=== PATIENT | female | born 1985 | race African-American/Black ===

== ENCOUNTER 2025-05-29 08:21 | Inpatient (IN) | payer MEDICAID ==
[~2025-05-29] VITALS: Ht 160 cm; Wt 93.4 kg
[2025-05-29 08:24] VITALS: O2SAT 96
[2025-05-29 09:41] LABS: BASOPHILS % 0.2 % (0.0-2.0); EOSINOPHILS % 0.3 % (0.0-5.0); HEMATOCRIT. 37.9 % (36.0-48.0); HEMOGLOBIN. 12.8 g/dL (12.0-16.0); LYMPHOCYTES % 19.3 % (20.0-50.0); MEAN PLATELET VOLUME 8.4 fl (7.4-10.4); MONOCYTES % 9.2 % (2.0-8.0); NEUTROPHILS % 71.0 % (40.0-76.0); PLATELET 180 x1000/uL (130-400); RED BLOOD CELL COUNT 4.17 mill/uL (4.2-5.4); RED CELL DISTRIBUTION WIDTH 14.3 % (11.6-14.6)
[2025-05-29 09:57] LABS: HCG SCREEN NEGATIVE
[2025-05-29 09:58] LABS: CREATININE 0.5 mg/dL (0.6-1.0); TROPONIN I HIGH SENSITIVITY < 4 ng/L (3.0-34); UREA NITROGEN BLOOD 11 mg/dL (9-23)
[2025-05-29 10:00] LABS: ASPARTATE AMINOTRANSFERASE 45 IU/L (<34); BILIRUBIN DIRECT 0.5 mg/dL (<=3.0); BILIRUBIN TOTAL 0.7 mg/dL (0.1-1.0); PROTEIN TOTAL 5.8 g/dL (6.0-8.3)
[2025-05-29] MEDS: FUROSEMIDE 40MG/4ML VIAL IVP ONE (10:23)
[2025-05-29] MEDS: CEFTRIAXONE 1GM/50ML 50 ML IV ONE (11:47)
[2025-05-29 12:30] VITALS: BP 135/58; PULSE 110; RESP 17; TEMP 36.6; O2SAT 99
[2025-05-29] MEDS ORDERED: CHOL400D7 PO (12:49)
[2025-05-29] MEDS ORDERED: CARB-214 PO (12:49)
[2025-05-29] MEDS ORDERED: LEVO25TA7 PO (12:49)
[2025-05-29] MEDS ORDERED: LEVE100023 PO (12:49)
[2025-05-29] MEDS ORDERED: OLAN10TA72 PO (12:49)
[2025-05-29] MEDS ORDERED: DOCU-286 PO (12:49)
[2025-05-29] MEDS ORDERED: DIVA-131 PO (12:49)
[2025-05-29 12:58] VITALS: BP 135/58; PULSE 110; RESP 17; TEMP 36.5848
[2025-05-29] MEDS ORDERED: DOCUSATE SODIUM 100MG CAPSULE PO PRN (13:30)
[2025-05-29] MEDS ORDERED: ONDANSETRON HCL 4MG/2ML INJ IV PRN (13:30)
[2025-05-29] MEDS ORDERED: GUAIFENESIN 200MG/10ML SUGAR FREE UDC PO PRN (13:30)
[2025-05-29] MEDS ORDERED: ACETAMINOPHEN 325MG TABLET PO PRN ×2 (13:30)
[2025-05-29] MEDS ORDERED: IPRATROPIUM/ALBUTEROL 0.5-3(2.5)MG/3ML NEB HHN PRN (13:30)
[2025-05-29] MEDS: PIPERACILLIN/TAZO 3.375G/50ML 50 ML IV SCH (14:11)
[2025-05-29 16:00] VITALS: BP 129/85; PULSE 104; RESP 18; TEMP 36.7; O2SAT 97
[2025-05-29] MEDS: DIVALPROEX SODIUM 500MG DR TABLET PO SCH (16:13)
[2025-05-29 20:00] VITALS: BP 119/77; PULSE 95; RESP 20; TEMP 37; O2SAT 98
[2025-05-29] MEDS: OLANZAPINE 10MG TABLET PO SCH (20:53)
[2025-05-29] MEDS: CARBAMAZEPINE 100MG TABLET CHEW PO SCH (20:55)
[2025-05-29] MEDS: LEVETIRACETAM 500MG TABLET PO SCH (20:56)
[2025-05-29] MEDS: ENOXAPARIN 30MG/0.3ML SYR SUBCUT SCH (20:57)
[2025-05-30] VITALS (8 sets, daily range): BP systolic 122–150; BP diastolic 69–94; PULSE 89–107; RESP 18–20; TEMP 36.5–37; O2SAT 95–99
[2025-05-30] MEDS: PANTOPRAZOLE 40MG DR TABLET PO SCH (06:18)
[2025-05-30 08:13] LABS: BASOPHILS % 0.4 % (0.0-2.0); EOSINOPHILS % 0.6 % (0.0-5.0); HEMATOCRIT. 41.2 % (36.0-48.0); HEMOGLOBIN. 13.6 g/dL (12.0-16.0); LYMPHOCYTES % 37.1 % (20.0-50.0); MONOCYTES % 10.9 % (2.0-8.0); NEUTROPHILS % 51.0 % (40.0-76.0); RED BLOOD CELL COUNT 4.52 mill/uL (4.2-5.4); RED CELL DISTRIBUTION WIDTH 14.9 % (11.6-14.6)
[2025-05-30 08:22] LABS: CREATININE 0.6 mg/dL (0.6-1.0)
[2025-05-30 08:23] LABS: UREA NITROGEN BLOOD 12 mg/dL (9-23)
[2025-05-30 08:25] LABS: PHOSPHORUS 3.5 mg/dL (2.5-4.9)
[2025-05-30 08:31] LABS: FOLIC ACID (FOLATE) SERUM > 20.00 ng/mL (>5.38); VITAMIN B12 SERUM 920 pg/mL (211-911)
[2025-05-30 08:33] LABS: TROPONIN I HIGH SENSITIVITY < 4 ng/L (3.0-34)
[2025-05-30 10:39] LABS: PLATELET 161 x1000/uL (130-400)
[2025-05-30 10:40] LABS: T4 FREE 1.11 ng/dL (0.89-1.76)
[2025-05-31] VITALS: BP 145/66; PULSE 90; RESP 18; TEMP 36.8; O2SAT 97
[2025-05-31 04:00] VITALS: BP 113/80; PULSE 78; RESP 20; TEMP 37; O2SAT 97
[2025-05-31 08:00] VITALS: BP 130/92; PULSE 97; RESP 17; TEMP 36.5; O2SAT 96
[2025-05-31] MEDS: FUROSEMIDE 40MG/4ML VIAL IVP NR (11:25)
[2025-05-31 12:00] VITALS: BP 134/87; PULSE 94; RESP 17; TEMP 36.4; O2SAT 100
[2025-05-31 16:00] VITALS: BP 131/2; PULSE 106; RESP 18; TEMP 36.5; O2SAT 97
[2025-05-31 20:00] VITALS: BP 129/89; PULSE 106; RESP 19; TEMP 36.2; O2SAT 93
[2025-06-01] VITALS: BP 137/81; PULSE 102; RESP 19; TEMP 36.4; O2SAT 100
[2025-06-01 04:00] VITALS: BP 120/87; PULSE 97; RESP 20; TEMP 36.1; O2SAT 94
[2025-06-01 08:00] VITALS: BP 142/86; PULSE 99; RESP 18; TEMP 36.9; O2SAT 98
[2025-06-01] MEDS: FUROSEMIDE 40MG/4ML VIAL IVP SCH (08:39)
[2025-06-01 12:00] VITALS: BP 132/87; PULSE 105; RESP 18; TEMP 36.6; O2SAT 98
[2025-06-01 20:00] VITALS: BP 134/75; PULSE 107; RESP 19; TEMP 36.7; O2SAT 96
[2025-06-01] MEDS: LORAZEPAM 0.5MG TABLET PO PRN (21:01)
[2025-06-02 04:00] VITALS: BP 133/54; PULSE 100; RESP 15; TEMP 36.1; O2SAT 98
[2025-06-02] MEDS ORDERED: FUROSEMIDE 40MG TABLET PO SCH (10:45)
[2025-06-02 12:00] VITALS: BP 127/84; PULSE 106; RESP 17; TEMP 36.1; O2SAT 95
[2025-06-02] MEDS: FUROSEMIDE 40MG TABLET PO SCH (12:39)
[2025-06-02 16:00] VITALS: BP 130/87; PULSE 107; RESP 16; TEMP 36.4; O2SAT 97
[2025-06-02 20:00] VITALS: BP 139/92; PULSE 105; RESP 19; TEMP 36.1; O2SAT 94
[2025-06-02] MEDS: AMOXICILLIN/POTASSIUM CLAVULANATE 875/125MG TAB PO SCH (21:28)
[2025-06-03] VITALS: BP 136/81; PULSE 101; RESP 18; TEMP 36.3; O2SAT 95
[2025-06-03 08:00] VITALS: BP 114/80; PULSE 95; RESP 17; TEMP 36.2; O2SAT 96
[2025-06-03] MEDS: OLANZAPINE 10MG TABLET ONE (09:01)
[2025-06-03 12:00] VITALS: BP 123/86; PULSE 104; RESP 16; TEMP 36.4; O2SAT 99
[2025-06-03 16:00] VITALS: BP 125/82; PULSE 105; RESP 17; TEMP 36.5; O2SAT 99
[2025-06-03 20:00] VITALS: BP 121/62; PULSE 107; RESP 16; TEMP 36.2; O2SAT 98
[2025-06-04] VITALS: BP 136/92; PULSE 108; RESP 16; TEMP 36; O2SAT 99
[2025-06-04 04:00] VITALS: BP 124/78; PULSE 106; RESP 16; TEMP 36.1; O2SAT 97
[2025-06-04 08:00] VITALS: BP 139/87; PULSE 100; RESP 18; TEMP 36.7; O2SAT 97
[2025-06-04 12:00] VITALS: BP 136/85; PULSE 97; RESP 19; TEMP 36.1; O2SAT 100
[2025-06-04 16:00] VITALS: BP 131/88; PULSE 105; RESP 19; TEMP 36.5; O2SAT 96
[2025-06-04 20:00] VITALS: BP 155/89; PULSE 105; RESP 19; TEMP 36.3; O2SAT 95
[2025-06-05] VITALS: BP 125/86; PULSE 110; RESP 19; TEMP 36.2; O2SAT 95
[2025-06-05 04:00] VITALS: BP 129/88; PULSE 105; RESP 18; TEMP 36.4; O2SAT 96
[2025-06-05 08:00] VITALS: BP 129/87; PULSE 104; RESP 17; TEMP 35.8; O2SAT 100
[2025-06-05 12:00] VITALS: BP 150/84; PULSE 102; RESP 17; TEMP 36.3; O2SAT 97
[2025-06-05 16:00] VITALS: BP 145/96; PULSE 100; RESP 17; TEMP 36.4; O2SAT 100
[2025-06-05] MEDS: AZITHROMYCIN 500MG/250ML 250 ML IV STA (19:54)
[2025-06-05 20:00] VITALS: BP 141/94; PULSE 105; RESP 18; TEMP 36.3; O2SAT 98
[2025-06-06] VITALS: BP 131/92; PULSE 109; RESP 18; TEMP 36.5; O2SAT 95
[2025-06-06 04:00] VITALS: BP 144/90; PULSE 104; RESP 18; TEMP 36.3; O2SAT 96
[2025-06-06 08:00] VITALS: BP 130/86; PULSE 105; RESP 18; TEMP 36.4; O2SAT 97
[2025-06-06 12:00] VITALS: BP 128/72; PULSE 102; RESP 18; TEMP 36.4; O2SAT 97
[2025-06-06 12:25] LABS: BASOPHILS % 0.4 % (0.0-2.0); EOSINOPHILS % 0.6 % (0.0-5.0); HEMATOCRIT. 37.6 % (36.0-48.0); HEMOGLOBIN. 12.7 g/dL (12.0-16.0); LYMPHOCYTES % 28.9 % (20.0-50.0); MEAN PLATELET VOLUME 8.5 fl (7.4-10.4); MONOCYTES % 11.1 % (2.0-8.0); NEUTROPHILS % 59.0 % (40.0-76.0); PLATELET 393 x1000/uL (130-400); RED BLOOD CELL COUNT 4.20 mill/uL (4.2-5.4); RED CELL DISTRIBUTION WIDTH 14.3 % (11.6-14.6)
[2025-06-06 12:47] LABS: CREATININE 0.5 mg/dL (0.6-1.0); UREA NITROGEN BLOOD 23 mg/dL (9-23)
[2025-06-06 16:00] VITALS: BP 125/70; PULSE 103; RESP 18; TEMP 36.6; O2SAT 97
[2025-06-06] MEDS: POTASSIUM CHLORIDE 20MEQ TABLET SR PO SCH (17:04)
[2025-06-06 20:00] VITALS: BP 150/92; PULSE 98; RESP 19; TEMP 35.9; O2SAT 98
[2025-06-07] VITALS: BP 153/93; PULSE 101; RESP 18; TEMP 35.9; O2SAT 93
[2025-06-07 04:00] VITALS: BP 163/93; PULSE 94; RESP 18; TEMP 36.3; O2SAT 98
[2025-06-07 08:00] VITALS: BP 153/105; PULSE 98; RESP 16; TEMP 36.1; O2SAT 100
[2025-06-07] MEDS: CLONIDINE 0.1MG TABLET PO PRN (09:25)
[2025-06-07 12:00] VITALS: BP 159/102; PULSE 100; RESP 18; TEMP 36.1; O2SAT 95
[2025-06-07 16:00] VITALS: BP 142/87; PULSE 85; RESP 15; TEMP 36.3; O2SAT 100
[2025-06-07 20:00] VITALS: BP 167/97; PULSE 92; RESP 18; TEMP 36.5; O2SAT 97
[2025-06-08] VITALS: BP 153/90; PULSE 101; RESP 18; TEMP 36.4; O2SAT 97
[2025-06-08 04:00] VITALS: BP 131/88; PULSE 104; RESP 18; TEMP 35.6; O2SAT 100
[2025-06-08 08:00] VITALS: BP 143/95; PULSE 104; RESP 16; TEMP 36.4; O2SAT 98
[2025-06-08 12:00] VITALS: BP 144/91; PULSE 113; RESP 16; TEMP 36.4; O2SAT 98
[2025-06-08 20:00] VITALS: BP 170/84; PULSE 105; RESP 18; TEMP 36.2; O2SAT 96
[2025-06-09] VITALS: BP 151/95; PULSE 102; RESP 18; TEMP 36.4; O2SAT 100
[2025-06-09 04:00] VITALS: BP 149/99; PULSE 104; RESP 18; TEMP 36.2; O2SAT 98
[2025-06-09 12:00] VITALS: BP 142/98; PULSE 112; RESP 16; TEMP 36.3; O2SAT 97
[2025-06-09 16:00] VITALS: BP 140/90; PULSE 117; RESP 16; TEMP 36.4; O2SAT 98
[2025-06-09 19:25] LABS: BASOPHILS % 0.5 % (0.0-2.0); EOSINOPHILS % 0.2 % (0.0-5.0); HEMATOCRIT. 37.9 % (36.0-48.0); HEMOGLOBIN. 12.8 g/dL (12.0-16.0); LYMPHOCYTES % 42.9 % (20.0-50.0); MEAN PLATELET VOLUME 8.7 fl (7.4-10.4); MONOCYTES % 10.2 % (2.0-8.0); NEUTROPHILS % 46.2 % (40.0-76.0); PLATELET 499 x1000/uL (130-400); RED BLOOD CELL COUNT 4.23 mill/uL (4.2-5.4); RED CELL DISTRIBUTION WIDTH 14.1 % (11.6-14.6)
[2025-06-09 19:42] LABS: CREATININE 0.5 mg/dL (0.6-1.0); UREA NITROGEN BLOOD 8 mg/dL (9-23)
[2025-06-09 19:44] LABS: ASPARTATE AMINOTRANSFERASE 101 IU/L (<34); BILIRUBIN TOTAL 0.5 mg/dL (0.1-1.0); PROTEIN TOTAL 6.5 g/dL (6.0-8.3)
[2025-06-09 20:00] VITALS: BP 144/98; PULSE 112; RESP 18; TEMP 35; O2SAT 100
[2025-06-10] VITALS: BP 134/87; PULSE 102; RESP 18; TEMP 35.1; O2SAT 98
[2025-06-10 04:00] VITALS: BP 138/95; PULSE 110; RESP 17; TEMP 36.1; O2SAT 98
[2025-06-10 08:00] VITALS: BP 125/85; PULSE 105; RESP 17; TEMP 36.1; O2SAT 98
[2025-06-10 12:00] VITALS: BP 130/86; PULSE 105; RESP 17; TEMP 36.1; O2SAT 98
[2025-06-10 16:00] VITALS: BP 128/84; PULSE 105; RESP 17; TEMP 36.1; O2SAT 98
[2025-06-10] MEDS: POTASSIUM CHLORIDE 20MEQ/PACKET PO NR (16:28)
[2025-06-10 20:00] VITALS: BP 134/83; PULSE 115; RESP 18; TEMP 36.5; O2SAT 97
[2025-06-11] VITALS: BP 120/71; PULSE 120; RESP 19; TEMP 36.5; O2SAT 99
[2025-06-11 04:01] VITALS: BP 130/88; PULSE 110; RESP 20; TEMP 36.4; O2SAT 96
[2025-06-11 08:00] VITALS: BP 148/88; PULSE 110; RESP 16; TEMP 36.4; O2SAT 100
[2025-06-11 12:00] VITALS: BP 134/75; PULSE 116; RESP 16; TEMP 36.1; O2SAT 100
[2025-06-11 16:00] VITALS: BP 106/78; PULSE 78; RESP 17; TEMP 36.3; O2SAT 100
[2025-06-11 16:04] LABS: BASOPHILS % 0.4 % (0.0-2.0); EOSINOPHILS % 0.2 % (0.0-5.0); HEMATOCRIT. 36.8 % (36.0-48.0); HEMOGLOBIN. 12.4 g/dL (12.0-16.0); LYMPHOCYTES % 49.7 % (20.0-50.0); MEAN PLATELET VOLUME 8.9 fl (7.4-10.4); MONOCYTES % 9.1 % (2.0-8.0); NEUTROPHILS % 40.6 % (40.0-76.0); PLATELET 425 x1000/uL (130-400); RED BLOOD CELL COUNT 4.04 mill/uL (4.2-5.4); RED CELL DISTRIBUTION WIDTH 14.5 % (11.6-14.6)
[2025-06-11 16:23] LABS: CREATININE 0.6 mg/dL (0.6-1.0)
[2025-06-11 16:24] LABS: UREA NITROGEN BLOOD 13 mg/dL (9-23)
[2025-06-11 16:26] LABS: PHOSPHORUS 3.6 mg/dL (2.5-4.9)
[2025-06-11] MEDS ORDERED: SODIUM CHLORIDE 0.9% 500 ML IV NR (17:30)
[2025-06-11] MEDS: ENOXAPARIN 30MG/0.3ML SYR SUBCUT SCH (18:09)
[2025-06-11] MEDS: MAGNESIUM 4 G PREMIX 100 ML IV NR (18:30)
[2025-06-11 20:00] VITALS: BP 116/71; PULSE 121; RESP 18; TEMP 36.2; O2SAT 96
[2025-06-12] VITALS: BP 128/76; PULSE 116; RESP 18; TEMP 36.3; O2SAT 98
[2025-06-12 04:00] VITALS: BP 120/80; PULSE 100; RESP 19; TEMP 36.4; O2SAT 98
[2025-06-12 08:00] VITALS: BP 140/97; PULSE 118; RESP 15; TEMP 35.6; O2SAT 99
[2025-06-12] MEDS: MAGNESIUM OXIDE 400MG TABLET PO SCH ×2 (08:42→17:46)
[2025-06-12 09:02] LABS: PLATELET 383 x1000/uL (130-400); RED BLOOD CELL COUNT 4.16 mill/uL (4.2-5.4); RED CELL DISTRIBUTION WIDTH 14.9 % (11.6-14.6)
[2025-06-12 09:46] LABS: CREATININE 0.5 mg/dL (0.6-1.0)
[2025-06-12 09:48] LABS: UREA NITROGEN BLOOD 16 mg/dL (9-23)
[2025-06-12 09:50] LABS: PHOSPHORUS 4.3 mg/dL (2.5-4.9)
[2025-06-12 12:00] VITALS: BP 135/94; PULSE 83; RESP 14; TEMP 35.6; O2SAT 100
[2025-06-12] MEDS ORDERED: MAGNESIUM 1 G PREMIX 100 ML IV SCH (14:00)
[2025-06-12 16:00] VITALS: BP 121/82; PULSE 67; RESP 15; TEMP 35.6; O2SAT 100
[2025-06-12 20:00] VITALS: BP 127/84; PULSE 122; RESP 20; TEMP 36.4; O2SAT 99
[2025-06-13] VITALS: BP 121/70; PULSE 109; RESP 20; TEMP 35.9; O2SAT 100
[2025-06-13 04:00] VITALS: BP 124/88; PULSE 75; RESP 20; TEMP 36.5; O2SAT 100
[2025-06-13 07:46] LABS: CREATININE 0.6 mg/dL (0.6-1.0); UREA NITROGEN BLOOD 17 mg/dL (9-23)
[2025-06-13 07:49] LABS: PLATELET 395 x1000/uL (130-400); RED BLOOD CELL COUNT 4.04 mill/uL (4.2-5.4); RED CELL DISTRIBUTION WIDTH 15.1 % (11.6-14.6)
[2025-06-13 07:59] LABS: PHOSPHORUS 4.1 mg/dL (2.5-4.9)
[2025-06-13 08:00] VITALS: BP 114/78; PULSE 122; RESP 18; TEMP 36.1; O2SAT 97
[2025-06-13] MEDS: SODIUM CHLORIDE 1000MG TABLET PO SCH (09:15)
[2025-06-13 12:01] VITALS: BP 102/71; PULSE 123; PULSE 136; RESP 18; TEMP 36.1; O2SAT 95
[2025-06-13 16:00] VITALS: BP 120/77; PULSE 110; RESP 19; TEMP 35.9; O2SAT 98
[2025-06-13 17:11] LABS: PLATELET 370 x1000/uL (130-400); RED BLOOD CELL COUNT 3.77 mill/uL (4.2-5.4); RED CELL DISTRIBUTION WIDTH 15.4 % (11.6-14.6)
[2025-06-13 17:23] LABS: CREATININE 0.6 mg/dL (0.6-1.0); UREA NITROGEN BLOOD 14 mg/dL (9-23)
[2025-06-13 20:00] VITALS: BP 114/71; PULSE 119; RESP 18; TEMP 36.2; O2SAT 98
[2025-06-14] VITALS: BP 113/75; PULSE 112; RESP 18; TEMP 36.1; O2SAT 97
[2025-06-14 04:00] VITALS: BP 120/77; PULSE 119; RESP 18; TEMP 36.2; O2SAT 95
[2025-06-14 08:00] VITALS: BP 124/73; PULSE 113; RESP 20; TEMP 36.2; O2SAT 100
[2025-06-14] MEDS ORDERED: MAGNESIUM CHLORIDE 64MG TABLET SR PO SCH (09:00)
[2025-06-14] MEDS: POTASSIUM CHLORIDE 20MEQ TABLET SR PO SCH (10:52)
[2025-06-14] MEDS: MAGNESIUM OXIDE 400MG TABLET PO SCH (10:52)
[2025-06-14 12:00] VITALS: BP 114/80; PULSE 119; RESP 19; TEMP 36.3; O2SAT 98
[2025-06-14 16:00] VITALS: BP 138/74; PULSE 119; RESP 20; TEMP 36.2; O2SAT 100
[2025-06-14 17:46] LABS: CREATININE 0.6 mg/dL (0.6-1.0)
[2025-06-14 17:47] LABS: UREA NITROGEN BLOOD 18 mg/dL (9-23)
[2025-06-14 20:00] VITALS: BP 113/78; PULSE 117; RESP 16; TEMP 36.4; O2SAT 96
[2025-06-15] VITALS: BP 114/77; PULSE 112; RESP 17; TEMP 36.3; O2SAT 97
[2025-06-15 04:00] VITALS: BP 110/80; PULSE 101; RESP 17; TEMP 36.3; O2SAT 97
[2025-06-15 08:00] VITALS: BP 118/49; PULSE 107; RESP 16; TEMP 37.2; O2SAT 99
[2025-06-15 12:00] VITALS: BP 132/86; PULSE 99; RESP 16; TEMP 36.1; O2SAT 99
[2025-06-15 16:00] VITALS: BP 109/75; PULSE 108; RESP 16; TEMP 36.4; O2SAT 97
[2025-06-15 20:00] VITALS: BP 119/70; PULSE 104; RESP 18; TEMP 36.5; O2SAT 100
[2025-06-16] VITALS: BP 127/86; PULSE 106; RESP 18; TEMP 36.4; O2SAT 100
[2025-06-16 04:00] VITALS: BP 123/76; PULSE 104; RESP 18; TEMP 36.5; O2SAT 100
[2025-06-16 06:29] LABS: PLATELET 279 x1000/uL (130-400); RED BLOOD CELL COUNT 3.85 mill/uL (4.2-5.4); RED CELL DISTRIBUTION WIDTH 15.8 % (11.6-14.6)
[2025-06-16 07:05] LABS: CREATININE 0.5 mg/dL (0.6-1.0)
[2025-06-16 07:06] LABS: UREA NITROGEN BLOOD 26 mg/dL (9-23)
[2025-06-16 07:08] LABS: PHOSPHORUS 4.2 mg/dL (2.5-4.9)
[2025-06-16 08:00] VITALS: BP 116/87; PULSE 100; RESP 16; TEMP 36.3; O2SAT 99
[2025-06-16 12:00] VITALS: BP 113/72; PULSE 103; RESP 17; TEMP 36.1; O2SAT 99
[2025-06-16 16:00] VITALS: BP 105/76; PULSE 104; RESP 17; TEMP 36.4; O2SAT 98
[2025-06-16 20:00] VITALS: BP 114/72; PULSE 99; RESP 14; TEMP 36.6; O2SAT 99
[2025-06-17] VITALS: BP 122/81; PULSE 99; RESP 16; TEMP 36.7; O2SAT 99
[2025-06-17 04:00] VITALS: BP 122/81; PULSE 99; RESP 16; TEMP 36.7; O2SAT 99
[2025-06-17 08:00] VITALS: BP 118/82; PULSE 96; RESP 16; TEMP 36.4; O2SAT 99
[2025-06-17 12:00] VITALS: BP 110/78; PULSE 113; RESP 17; TEMP 36.4; O2SAT 99
[2025-06-17 16:00] VITALS: BP 112/80; PULSE 109; RESP 16; TEMP 36.4; O2SAT 98
[2025-06-17 20:00] VITALS: BP 113/88; PULSE 121; RESP 18; TEMP 36.6; O2SAT 100
[2025-06-17 20:22] LABS: CREATININE 0.6 mg/dL (0.6-1.0); UREA NITROGEN BLOOD 21 mg/dL (9-23)
[2025-06-18] VITALS: BP 120/78; PULSE 111; RESP 18; TEMP 36.4; O2SAT 98
[2025-06-18 04:00] VITALS: BP 116/84; PULSE 95; RESP 18; TEMP 35.8; O2SAT 97
[2025-06-18 08:00] VITALS: BP 104/75; PULSE 84; RESP 18; TEMP 36.5; O2SAT 100
[2025-06-18] MEDS: POTASSIUM CHLORIDE 20MEQ TABLET SR PO NR (10:19)
[2025-06-18 11:29] LABS: CREATININE 0.5 mg/dL (0.6-1.0); UREA NITROGEN BLOOD 22 mg/dL (9-23)
[2025-06-18 11:31] LABS: PHOSPHORUS 3.9 mg/dL (2.5-4.9)
[2025-06-18 12:00] VITALS: BP 108/70; PULSE 109; RESP 18; TEMP 36.3; O2SAT 100
[2025-06-18 16:00] VITALS: BP 128/81; PULSE 104; RESP 17; TEMP 36.4; O2SAT 100
[2025-06-19] VITALS: BP 137/94; PULSE 117; RESP 18; TEMP 36.6; O2SAT 98
[2025-06-19 04:00] VITALS: BP 123/85; PULSE 113; RESP 18; TEMP 36.4; O2SAT 98
[2025-06-19 12:00] VITALS: BP 118/79; PULSE 106; RESP 19; TEMP 36.3; O2SAT 100
[2025-06-19 13:32] LABS: CREATININE 0.5 mg/dL (0.6-1.0); UREA NITROGEN BLOOD 26 mg/dL (9-23)
[2025-06-19 16:00] VITALS: BP 129/81; PULSE 79; RESP 18; TEMP 36.9; O2SAT 98
[2025-06-19] MEDS: POTASSIUM CHLORIDE 20MEQ TABLET SR PO SCH (18:45)
[2025-06-19 20:00] VITALS: BP 124/85; PULSE 112; RESP 17; TEMP 36.3; O2SAT 99
[2025-06-20] VITALS: BP 100/60; PULSE 91; RESP 17; TEMP 36.5; O2SAT 100
[2025-06-20 04:00] VITALS: BP 124/74; PULSE 87; RESP 17; TEMP 36.1; O2SAT 100
[2025-06-20 08:00] VITALS: BP 134/71; PULSE 97; RESP 15; TEMP 36.1; O2SAT 100
[2025-06-20 12:00] VITALS: BP 112/86; PULSE 95; RESP 15; TEMP 36; O2SAT 96
[2025-06-20 16:00] VITALS: BP 121/81; PULSE 84; RESP 15; TEMP 35.9; O2SAT 97
[2025-06-20 20:00] VITALS: BP 113/84; PULSE 107; RESP 16; TEMP 36.5; O2SAT 95
[2025-06-21] VITALS: BP 131/69; PULSE 100; RESP 18; TEMP 36.4; O2SAT 96
[2025-06-21 04:00] VITALS: BP 131/84; PULSE 86; RESP 18; TEMP 36.5; O2SAT 99
[2025-06-21 08:00] VITALS: BP 130/84; PULSE 80; RESP 18; TEMP 35.9; O2SAT 95
[2025-06-21 12:00] VITALS: BP 117/85; PULSE 96; RESP 18; TEMP 35.7; O2SAT 100
[2025-06-21 16:00] VITALS: BP 110/73; PULSE 57; RESP 18; TEMP 35.6; O2SAT 100
[2025-06-22 04:00] VITALS: BP 108/74; PULSE 106; RESP 18; TEMP 36.3; O2SAT 97
[2025-06-22 20:00] VITALS: BP 137/81; PULSE 102; RESP 18; TEMP 36.1; O2SAT 99
[2025-06-22 22:27] LABS: PLATELET 159 x1000/uL (130-400); RED BLOOD CELL COUNT 4.03 mill/uL (4.2-5.4); RED CELL DISTRIBUTION WIDTH 15.8 % (11.6-14.6)
[2025-06-22 22:50] LABS: CREATININE 0.5 mg/dL (0.6-1.0); UREA NITROGEN BLOOD 14 mg/dL (9-23)
[2025-06-22 22:52] LABS: PHOSPHORUS 4.0 mg/dL (2.5-4.9)
[2025-06-23] VITALS: BP 124/73; PULSE 93; RESP 18; TEMP 36.4; O2SAT 100
[2025-06-23 04:00] VITALS: BP_SYST 1; PULSE 93; RESP 18; TEMP 35.9; O2SAT 100
[2025-06-23 08:00] VITALS: BP 117/64; PULSE 73; RESP 18; TEMP 36.3; O2SAT 98
[2025-06-23 16:00] VITALS: BP 105/69; PULSE 90; RESP 16; TEMP 36.3; O2SAT 98
[2025-06-23 20:00] VITALS: BP 101/70; PULSE 76; RESP 17; TEMP 36.4; O2SAT 100
[2025-06-24] VITALS: BP 126/82; PULSE 95; RESP 17; TEMP 36.4; O2SAT 100
[2025-06-24 04:00] VITALS: BP 112/72; PULSE 88; RESP 18; TEMP 36.2; O2SAT 100
[2025-06-24 08:00] VITALS: BP 121/94; PULSE 101; RESP 19; TEMP 36.4; O2SAT 100
[2025-06-24] MEDS ORDERED: ENOXAPARIN 40MG/0.4ML SYR SUBCUT SCH (09:00)
[2025-06-24 12:00] VITALS: BP 120/66; PULSE 78; RESP 18; TEMP 36.3; O2SAT 100
[2025-06-24 16:00] VITALS: BP 114/75; PULSE 103; RESP 18; TEMP 36.6; O2SAT 98
[2025-06-24 20:00] VITALS: BP 119/67; PULSE 103; RESP 17; TEMP 35.8; O2SAT 97
[2025-06-24 20:39] LABS: PLATELET 127 x1000/uL (130-400); RED BLOOD CELL COUNT 4.01 mill/uL (4.2-5.4); RED CELL DISTRIBUTION WIDTH 15.5 % (11.6-14.6)
[2025-06-24 20:53] LABS: CREATININE 0.5 mg/dL (0.6-1.0); UREA NITROGEN BLOOD 15 mg/dL (9-23)
[2025-06-25] VITALS: BP 120/83; PULSE 92; RESP 18; TEMP 36.2; O2SAT 99
[2025-06-25 04:00] VITALS: BP 121/70; PULSE 87; RESP 19; TEMP 36.2; O2SAT 99
[2025-06-25 11:14] LABS: PLATELET 158 x1000/uL (130-400); RED BLOOD CELL COUNT 4.19 mill/uL (4.2-5.4); RED CELL DISTRIBUTION WIDTH 15.7 % (11.6-14.6)
[2025-06-25 11:26] LABS: CREATININE 0.5 mg/dL (0.6-1.0); UREA NITROGEN BLOOD 21 mg/dL (9-23)
[2025-06-25 16:00] VITALS: BP 119/78; PULSE 91; RESP 18; TEMP 36.5; O2SAT 100
[2025-06-25 20:00] VITALS: BP 127/88; PULSE 103; RESP 19; TEMP 36.2; O2SAT 97
[2025-06-26] VITALS: BP 132/60; PULSE 93; RESP 19; TEMP 36.3; O2SAT 100
[2025-06-26 04:00] VITALS: BP 136/82; PULSE 96; RESP 19; TEMP 36.5; O2SAT 100
[2025-06-26 08:00] VITALS: BP 121/78; PULSE 95; RESP 20; TEMP 35.1; O2SAT 100
[2025-06-26] MEDS: ASCORBIC ACID 500 MG TABLET PO SCH (08:58)
[2025-06-26 12:00] VITALS: BP 117/77; PULSE 110; RESP 16; TEMP 35.6; O2SAT 99
[2025-06-26 20:00] VITALS: BP 102/73; PULSE 110; RESP 18; TEMP 36.6; O2SAT 99
[2025-06-27] VITALS: BP 118/78; PULSE 96; RESP 18; TEMP 36.6; O2SAT 98
[2025-06-27 04:00] VITALS: BP 114/73; PULSE 69; RESP 18; TEMP 36.6; O2SAT 99
[2025-06-27 08:00] VITALS: BP 118/78; PULSE 82; RESP 18; TEMP 36.4; O2SAT 100
[2025-06-27] MEDS ORDERED: CLONIDINE 0.1MG TABLET PO PRN (08:00)
[2025-06-27] MEDS ORDERED: ACETAMINOPHEN 325MG TABLET PO PRN (08:00)
[2025-06-27] MEDS: DIVALPROEX SODIUM 500MG DR TABLET PO SCH (08:35)
[2025-06-27] MEDS: OLANZAPINE 10MG TABLET PO SCH (08:36)
[2025-06-27] MEDS: CARBAMAZEPINE 100MG TABLET CHEW PO SCH (08:40)
[2025-06-27 12:00] VITALS: BP 114/76; PULSE 98; RESP 20; TEMP 36.1; O2SAT 99
[2025-06-27 16:00] VITALS: BP 120/60; PULSE 90; RESP 19; TEMP 36.4; O2SAT 100
[2025-06-27 20:00] VITALS: BP 117/78; PULSE 108; RESP 19; TEMP 36.3; O2SAT 100
[2025-06-28] VITALS: BP 100/75; PULSE 101; RESP 18; TEMP 36.1; O2SAT 95
[2025-06-28 04:00] VITALS: BP 113/71; PULSE 98; RESP 18; TEMP 36.3; O2SAT 100
[2025-06-28] MEDS: PANTOPRAZOLE 40MG DR TABLET PO SCH (06:11)
[2025-06-28 08:00] VITALS: BP 99/67; PULSE 65; RESP 19; TEMP 36.5; O2SAT 95
[2025-06-28 12:00] VITALS: BP 110/72; PULSE 95; RESP 18; TEMP 36.4; O2SAT 98
[2025-06-28 16:00] VITALS: BP 113/69; PULSE 110; RESP 19; TEMP 36.4; O2SAT 98
[2025-06-28 20:00] VITALS: BP 98/64; PULSE 98; RESP 17; TEMP 36; O2SAT 98
[2025-06-29] VITALS: BP 102/64; PULSE 96; RESP 16; TEMP 36.1; O2SAT 99
[2025-06-29 04:00] VITALS: BP 114/86; PULSE 104; RESP 17; TEMP 36.2; O2SAT 97
[2025-06-29 08:00] VITALS: BP 119/91; PULSE 107; RESP 17; TEMP 36.4; O2SAT 96
[2025-06-29 12:00] VITALS: BP 139/94; PULSE 105; RESP 18; TEMP 36.6; O2SAT 98
[2025-06-29 16:00] VITALS: BP 116/93; PULSE 129; RESP 17; TEMP 36.4; O2SAT 98
[2025-06-29 20:00] VITALS: BP 137/74; PULSE 114; RESP 16; TEMP 36.6; O2SAT 100
[2025-06-30] VITALS: BP 127/80; PULSE 102; RESP 18; TEMP 36.5; O2SAT 100
[2025-06-30 04:00] VITALS: BP 127/76; PULSE 97; RESP 18; TEMP 36.2; O2SAT 97
[2025-06-30 08:00] VITALS: BP 125/87; PULSE 95; RESP 18; TEMP 36.1; O2SAT 98
[2025-06-30 12:00] VITALS: BP 132/85; PULSE 98; RESP 17; TEMP 36.4; O2SAT 98
[2025-06-30 16:00] VITALS: BP 134/82; PULSE 105; RESP 17; TEMP 36.4; O2SAT 98
[2025-06-30 20:00] VITALS: BP 146/90; PULSE 96; RESP 18; TEMP 36.8; O2SAT 90
[2025-07-01] VITALS: BP 125/83; PULSE 61; RESP 16; TEMP 36.1; O2SAT 90
[2025-07-01 04:00] VITALS: BP 120/69; PULSE 61; RESP 16; TEMP 36.4; O2SAT 91
[2025-07-01 08:00] VITALS: BP 101/77; PULSE 71; RESP 18; TEMP 36.4; O2SAT 98
[2025-07-01 12:00] VITALS: BP 136/86; PULSE 119; RESP 18; TEMP 36.4; O2SAT 98
[2025-07-01 16:00] VITALS: BP 104/81; PULSE 105; RESP 18; TEMP 36.6; O2SAT 96
[2025-07-02] VITALS: BP 101/65; PULSE 115; RESP 19; TEMP 36.3; O2SAT 99
[2025-07-02 04:00] VITALS: BP 116/83; PULSE 106; RESP 44; TEMP 36.3; O2SAT 100
[2025-07-02 12:00] VITALS: BP 102/80; PULSE 115; RESP 17; TEMP 36; O2SAT 98
[2025-07-02 16:00] VITALS: BP 116/86; PULSE 116; RESP 18; TEMP 35.8; O2SAT 96
[2025-07-02 20:00] VITALS: BP 121/88; PULSE 118; RESP 18; TEMP 36.4; O2SAT 98
[2025-07-02] MEDS: ACETAMINOPHEN 325MG TABLET PO PRN (20:26)
[2025-07-03] VITALS: BP 118/76; PULSE 112; RESP 18; TEMP 36.2; O2SAT 96
[2025-07-03 04:00] VITALS: BP 116/89; PULSE 109; RESP 17; TEMP 36.6; O2SAT 97
[2025-07-03 08:00] VITALS: BP 136/70; PULSE 66; RESP 18; TEMP 35.3; O2SAT 99
[2025-07-03 12:00] VITALS: BP 125/83; PULSE 115; RESP 18; TEMP 36.6; O2SAT 18; O2SAT 99
[2025-07-03 16:00] VITALS: BP 110/70; PULSE 111; RESP 18; TEMP 35.8; O2SAT 97
[2025-07-03 20:00] VITALS: BP 119/89; PULSE 121; RESP 18; TEMP 36.4; O2SAT 100
[2025-07-03] MEDS: ALPRAZOLAM 0.5 MG TABLET PO NR (22:59)
[2025-07-04] VITALS: BP 138/83; PULSE 116; RESP 18; TEMP 36; O2SAT 96
[2025-07-04 04:00] VITALS: BP 123/91; PULSE 95; RESP 18; TEMP 35.9; O2SAT 100
[2025-07-04 08:00] VITALS: BP 104/68; PULSE 98; RESP 18; TEMP 35.8; O2SAT 100
[2025-07-04 12:00] VITALS: BP 106/78; PULSE 82; RESP 18; TEMP 36.4; O2SAT 97
[2025-07-04 16:00] VITALS: BP 100/64; PULSE 62; RESP 18; TEMP 35.7; O2SAT 98
[2025-07-04 20:00] VITALS: BP 94/64; PULSE 101; RESP 18; TEMP 36.1; O2SAT 100
[2025-07-05] VITALS: BP 103/64; PULSE 96; RESP 20; TEMP 36.1; O2SAT 100
[2025-07-05 04:00] VITALS: BP 106/68; PULSE 97; RESP 19; TEMP 36.1; O2SAT 100
[2025-07-05 08:00] VITALS: BP 124/75; PULSE 83; RESP 19; TEMP 36.3; O2SAT 98
[2025-07-05 12:00] VITALS: BP 115/76; PULSE 100; RESP 18; TEMP 36.1; O2SAT 98
[2025-07-05 16:00] VITALS: BP 130/80; PULSE 101; RESP 19; TEMP 36.3; O2SAT 98
[2025-07-05 20:00] VITALS: BP 106/67; PULSE 100; RESP 18; TEMP 36.2; O2SAT 100
[2025-07-06] VITALS: BP 107/69; PULSE 93; RESP 18; TEMP 35.8; O2SAT 100
[2025-07-06 04:00] VITALS: BP 137/75; PULSE 105; RESP 17; TEMP 35.8; O2SAT 100
[2025-07-06 08:00] VITALS: BP 120/80; PULSE 99; RESP 18; TEMP 36.1; O2SAT 100
[2025-07-06 12:00] VITALS: BP 116/76; PULSE 91; RESP 14; RESP 17; TEMP 36.1; O2SAT 98
[2025-07-06 16:00] VITALS: BP 105/66; PULSE 93; RESP 18; TEMP 36.4; O2SAT 98
[2025-07-06 20:00] VITALS: BP_SYST 111; BP_SYST 99; BP_DIAS 54; BP_DIAS 72; PULSE 94; RESP 18; TEMP 36.4; O2SAT 100
[2025-07-07] VITALS: BP 101/63; PULSE 91; RESP 18; TEMP 36.6; O2SAT 99
[2025-07-07 04:00] VITALS: BP 124/78; PULSE 97; RESP 18; TEMP 36.8; O2SAT 100
[2025-07-07 08:00] VITALS: BP 127/93; PULSE 105; RESP 18; TEMP 36.6; O2SAT 98
[2025-07-07 12:00] VITALS: BP 127/76; PULSE 102; RESP 18; TEMP 36.4; O2SAT 98
[2025-07-07 20:00] VITALS: BP_SYST 102; BP_SYST 136; BP_DIAS 71; BP_DIAS 75; PULSE 100; PULSE 74; RESP 17; RESP 18; TEMP 36.3; TEMP 36.4; O2SAT 95; O2SAT 99
[2025-07-08] VITALS: BP 133/70; PULSE 70; RESP 16; TEMP 36.4; O2SAT 99
[2025-07-08 04:00] VITALS: BP 103/67; PULSE 99; RESP 18; TEMP 36.4; O2SAT 94
[2025-07-08 08:00] VITALS: BP 135/82; PULSE 76; RESP 20; TEMP 36.2; O2SAT 100
[2025-07-08 12:00] VITALS: BP 109/78; PULSE 107; RESP 18; TEMP 37; O2SAT 95
[2025-07-08 16:00] VITALS: BP 112/80; PULSE 116; RESP 20; TEMP 36.3; O2SAT 96
[2025-07-08] MEDS: DOCUSATE SODIUM 100MG CAPSULE PO PRN (18:23)
[2025-07-08 20:00] VITALS: BP 118/77; PULSE 104; RESP 18; TEMP 36.3; O2SAT 100
[2025-07-09] VITALS: BP 129/76; PULSE 104; RESP 18; TEMP 36.3; O2SAT 100
[2025-07-09 04:00] VITALS: BP 121/72; PULSE 88; RESP 18; TEMP 36.4; O2SAT 100
[2025-07-09 08:00] VITALS: BP 120/76; PULSE 92; RESP 16; TEMP 35.7; O2SAT 100
[2025-07-09 12:00] VITALS: BP 115/76; PULSE 92; RESP 17; TEMP 36.4; O2SAT 100
[2025-07-09 16:00] VITALS: BP 113/77; PULSE 92; RESP 17; TEMP 35.8; O2SAT 99
[2025-07-09 20:00] VITALS: BP 117/77; PULSE 96; RESP 19; TEMP 36.4; O2SAT 99
[2025-07-10] VITALS: BP 114/70; PULSE 98; RESP 19; TEMP 36.4; O2SAT 98
[2025-07-10 04:00] VITALS: BP 127/70; PULSE 92; RESP 18; TEMP 36.1; O2SAT 98
[2025-07-10 08:00] VITALS: BP 139/80; PULSE 88; RESP 18; TEMP 36.2; O2SAT 98
[2025-07-10 12:00] VITALS: BP 130/78; PULSE 84; RESP 18; TEMP 36.2; O2SAT 98
[2025-07-10 16:00] VITALS: BP 128/89; PULSE 111; RESP 20; TEMP 36.4; O2SAT 98
[2025-07-10 20:00] VITALS: BP 120/87; PULSE 106; RESP 18; TEMP 36.3; O2SAT 98
[2025-07-11] VITALS: BP 127/95; PULSE 115; RESP 18; TEMP 35.9; O2SAT 99
[2025-07-11 04:00] VITALS: BP 103/77; PULSE 109; RESP 18; TEMP 36.5; O2SAT 98
[2025-07-11 08:00] VITALS: BP 132/82; PULSE 95; RESP 18; TEMP 35.8; O2SAT 100
[2025-07-11 12:00] VITALS: BP 118/75; PULSE 102; RESP 18; TEMP 36.4; O2SAT 96
[2025-07-11 16:00] VITALS: BP 104/68; PULSE 104; RESP 18; TEMP 36.4; O2SAT 100
[2025-07-11 20:00] VITALS: BP 126/79; PULSE 113; RESP 18; TEMP 36.6; O2SAT 98
[2025-07-12] VITALS: BP 124/68; PULSE 107; RESP 18; TEMP 36.6; O2SAT 99
[2025-07-12 04:00] VITALS: BP 120/73; PULSE 86; RESP 18; TEMP 36; O2SAT 100
[2025-07-12 08:00] VITALS: BP 108/67; PULSE 98; RESP 18; TEMP 35.8; O2SAT 100
[2025-07-12 12:00] VITALS: BP 92/61; PULSE 105; RESP 18; TEMP 36; O2SAT 98
[2025-07-12 20:00] VITALS: PULSE 101; RESP 20; TEMP 36.1; O2SAT 99
[2025-07-13] VITALS: BP 96/62; PULSE 81; PULSE 82; RESP 17; TEMP 36.8; O2SAT 100
[2025-07-13 01:48] VITALS: BP 96/62; PULSE 81; RESP 17; TEMP 36.8; O2SAT 100
[2025-07-13 04:00] VITALS: BP 106/65; PULSE 85; RESP 16; TEMP 36.6; O2SAT 100
[2025-07-13 08:00] VITALS: BP 118/76; PULSE 92; RESP 16; TEMP 36.4; O2SAT 98
[2025-07-13 16:00] VITALS: BP 108/74; PULSE 17; RESP 17; TEMP 36.4; O2SAT 98
[2025-07-13 20:00] VITALS: PULSE 119; RESP 16; TEMP 36.6; O2SAT 100
[2025-07-14] VITALS: BP 128/84; PULSE 102; RESP 18; TEMP 36.4; O2SAT 99
[2025-07-14 04:00] VITALS: BP 119/79; PULSE 91; RESP 18; TEMP 36.1; O2SAT 99
[2025-07-14 08:00] VITALS: BP 131/87; PULSE 108; RESP 17; TEMP 36.7; O2SAT 96
[2025-07-14 12:00] VITALS: BP 114/75; PULSE 96; RESP 18; TEMP 36.4; O2SAT 97
[2025-07-14 16:00] VITALS: BP 135/87; PULSE 107; RESP 18; TEMP 36.4; O2SAT 98
[2025-07-14 20:00] VITALS: BP 121/62; PULSE 115; RESP 18; TEMP 36.1; O2SAT 100
[2025-07-15] VITALS: BP 114/84; PULSE 110; RESP 16; TEMP 37; O2SAT 97
[2025-07-15] MEDS: LORAZEPAM 1MG TABLET PO NR (02:23)
[2025-07-15 04:00] VITALS: BP 111/66; PULSE 81; RESP 16; TEMP 36.3; O2SAT 95
[2025-07-15 08:00] VITALS: BP 113/75; PULSE 108; RESP 18; TEMP 36.6; O2SAT 98
[2025-07-15 12:00] VITALS: BP 112/79; PULSE 108; RESP 17; TEMP 36.4; O2SAT 98
[2025-07-15 16:00] VITALS: BP 123/80; PULSE 104; RESP 17; TEMP 36.5; O2SAT 98
[2025-07-15 20:00] VITALS: BP 124/89; PULSE 98; RESP 19; TEMP 36.3; O2SAT 99
[2025-07-16] VITALS: BP 117/57; PULSE 85; PULSE 91; RESP 19; TEMP 36.1; TEMP 36.2; O2SAT 100
[2025-07-16 04:00] VITALS: BP 113/69; PULSE 90; RESP 18; TEMP 36.3; O2SAT 100
[2025-07-16 08:00] VITALS: BP 117/67; PULSE 92; RESP 18; TEMP 36.6; O2SAT 100
[2025-07-16 12:00] VITALS: BP 105/62; PULSE 113; RESP 18; TEMP 36.7; O2SAT 99
[2025-07-16 16:00] VITALS: BP 105/62; PULSE 62; RESP 18; TEMP 36.4; O2SAT 97
[2025-07-16 20:00] VITALS: BP 101/63; PULSE 103; RESP 18; TEMP 36.3; O2SAT 100
[2025-07-17] VITALS: BP 111/62; PULSE 101; RESP 18; TEMP 36.3; O2SAT 100
[2025-07-17 04:00] VITALS: BP 98/64; PULSE 88; RESP 18; TEMP 35.8; O2SAT 97
[2025-07-17 08:00] VITALS: BP 106/67; PULSE 89; RESP 18; TEMP 35.9; O2SAT 99
[2025-07-17 12:00] VITALS: BP 94/71; PULSE 108; RESP 18; TEMP 36.1; O2SAT 99
[2025-07-17 16:00] VITALS: BP 109/72; PULSE 86; RESP 18; TEMP 36.5; O2SAT 94
[2025-07-17 20:00] VITALS: BP 123/73; PULSE 93; RESP 18; TEMP 36.3; O2SAT 100
[2025-07-18] VITALS: BP 107/66; PULSE 89; RESP 18; TEMP 36.1; O2SAT 99
[2025-07-18 04:00] VITALS: BP 108/75; PULSE 88; RESP 18; TEMP 35.9; O2SAT 100
[2025-07-18 08:00] VITALS: BP 130/76; PULSE 87; RESP 18; TEMP 36.4; O2SAT 100
[2025-07-18 12:00] VITALS: BP 111/67; PULSE 85; RESP 18; TEMP 35.6; O2SAT 100
[2025-07-18 16:00] VITALS: BP 110/65; PULSE 84; RESP 18; TEMP 35.9; O2SAT 100
[2025-07-18 20:00] VITALS: BP 103/77; PULSE 100; RESP 18; TEMP 36.4; O2SAT 96
[2025-07-19] VITALS: BP 112/75; PULSE 87; RESP 16; TEMP 36.4; O2SAT 100
[2025-07-19 04:00] VITALS: BP 130/78; PULSE 83; RESP 18; TEMP 36.6; O2SAT 99
[2025-07-19 08:00] VITALS: BP 112/65; PULSE 71; RESP 18; TEMP 35.7; O2SAT 100
[2025-07-19 12:00] VITALS: BP 128/70; PULSE 71; RESP 18; TEMP 35.5; O2SAT 100
[2025-07-19 16:00] VITALS: BP 100/65; PULSE 90; RESP 18; TEMP 36; O2SAT 98
[2025-07-19] MEDS: ENOXAPARIN 30MG/0.3ML SYR SUBCUT SCH (17:36)
[2025-07-19 20:00] VITALS: BP 122/80; PULSE 110; RESP 18; TEMP 36.3; O2SAT 97
[2025-07-20] VITALS: BP 124/82; PULSE 97; RESP 19; TEMP 36.3; O2SAT 98
[2025-07-20 04:00] VITALS: BP 126/69; PULSE 94; RESP 18; TEMP 36.7; O2SAT 99
[2025-07-20 08:00] VITALS: BP 121/80; PULSE 106; RESP 16; TEMP 36.4; O2SAT 98
[2025-07-20 12:00] VITALS: BP 126/82; PULSE 98; RESP 17; TEMP 36.7; O2SAT 98
[2025-07-20] MEDS ORDERED: KETOROLAC 15MG/ML VIAL IV PRN (15:30)
[2025-07-20 16:00] VITALS: BP 136/69; PULSE 102; RESP 17; TEMP 36.6; O2SAT 96
[2025-07-20 20:00] VITALS: BP 107/66; PULSE 107; RESP 19; TEMP 36.4; O2SAT 100
[2025-07-21] VITALS: BP 116/72; PULSE 98; RESP 20; TEMP 36.3; O2SAT 100
[2025-07-21 08:00] VITALS: BP 118/73; PULSE 91; RESP 18; TEMP 36.4; O2SAT 99
[2025-07-21 12:00] VITALS: BP 98/60; PULSE 94; RESP 16; TEMP 36.5; O2SAT 98
[2025-07-21 20:00] VITALS: BP 122/85; PULSE 100; RESP 18; TEMP 36.6; O2SAT 100
[2025-07-22] VITALS: BP 119/63; PULSE 103; RESP 17; TEMP 36.6; O2SAT 100
[2025-07-22 04:00] VITALS: BP 102/67; PULSE 91; RESP 18; TEMP 36.6; O2SAT 100
[2025-07-22 08:00] VITALS: BP 108/76; PULSE 89; RESP 17; TEMP 36.5; O2SAT 96
[2025-07-22 12:00] VITALS: BP 103/68; PULSE 96; RESP 17; TEMP 36.4; O2SAT 96
[2025-07-22 16:00] VITALS: BP 117/70; PULSE 98; RESP 17; TEMP 36.6; O2SAT 98
[2025-07-22 20:00] VITALS: BP 118/97; PULSE 104; RESP 19; TEMP 36.5; O2SAT 98
[2025-07-23] VITALS: BP 126/79; PULSE 107; RESP 18; TEMP 36.6; O2SAT 98
[2025-07-23 04:00] VITALS: BP 103/60; PULSE 97; RESP 18; TEMP 36.6; O2SAT 100
[2025-07-23 08:00] VITALS: BP 107/63; PULSE 96; RESP 16; TEMP 35.9; O2SAT 99
[2025-07-23 12:00] VITALS: BP 110/69; PULSE 82; RESP 17; TEMP 35.9; O2SAT 97
[2025-07-23 16:00] VITALS: BP 116/68; PULSE 72; RESP 16; TEMP 35.7; O2SAT 96
[2025-07-23 20:00] VITALS: BP 123/81; PULSE 115; RESP 19; TEMP 36.5; O2SAT 98
[2025-07-23] MEDS: IBUPROFEN 200MG TABLET PO PRN (21:33)
[2025-07-24] VITALS: BP 135/78; PULSE 114; RESP 18; TEMP 36.5; O2SAT 97
[2025-07-24 04:00] VITALS: BP 127/81; PULSE 106; RESP 19; TEMP 36.4; O2SAT 97
[2025-07-24 08:00] VITALS: BP 127/85; PULSE 100; RESP 22; TEMP 35.7; O2SAT 100
[2025-07-24 12:00] VITALS: BP 108/66; PULSE 95; RESP 19; TEMP 36.5; O2SAT 96
[2025-07-24 16:00] VITALS: BP 135/79; PULSE 90; RESP 20; TEMP 36.2; O2SAT 98
[2025-07-24 20:00] VITALS: BP 127/80; PULSE 96; RESP 18; TEMP 36.5; O2SAT 99
[2025-07-25] VITALS: BP 128/82; PULSE 96; RESP 18; TEMP 36.5; O2SAT 99
[2025-07-25 04:00] VITALS: BP 121/80; PULSE 18; RESP 18; TEMP 36.4; O2SAT 98
[2025-07-25 08:00] VITALS: BP 127/72; PULSE 72; RESP 18; TEMP 36; O2SAT 100
[2025-07-25 12:00] VITALS: BP 115/74; PULSE 99; RESP 18; TEMP 35.8; O2SAT 100
[2025-07-25 16:00] VITALS: BP 115/82; PULSE 98; RESP 18; TEMP 35.8; O2SAT 99
[2025-07-25 20:00] VITALS: BP 143/94; PULSE 107; RESP 18; TEMP 36.4; O2SAT 98
[2025-07-26] VITALS: BP 133/88; PULSE 105; RESP 18; TEMP 36.3; O2SAT 98
[2025-07-26 04:00] VITALS: BP 130/80; PULSE 103; RESP 18; TEMP 36.2; O2SAT 99
[2025-07-26 08:00] VITALS: BP 117/84; PULSE 100; RESP 18; TEMP 35.6; O2SAT 99
[2025-07-26 12:00] VITALS: BP 128/82; PULSE 100; RESP 18; TEMP 35.8; O2SAT 98
[2025-07-26] MEDS: LACTULOSE 20G/30ML UDC PO SCH (15:59)
[2025-07-26 16:00] VITALS: BP 100/70; PULSE 100; RESP 18; TEMP 35.8; O2SAT 99
[2025-07-26 20:00] VITALS: BP 115/76; PULSE 102; RESP 18; TEMP 36.5; O2SAT 100
[2025-07-27 04:00] VITALS: BP 144/85; PULSE 98; RESP 18; TEMP 36.5; O2SAT 96
[2025-07-27 08:00] VITALS: BP 119/70; PULSE 104; RESP 18; TEMP 36.3; O2SAT 99
[2025-07-27 12:00] VITALS: BP 108/77; PULSE 94; RESP 18; TEMP 36.4; O2SAT 100
[2025-07-27 14:57] VITALS: BP 108/77; PULSE 94; RESP 18; TEMP 97.5
[2025-07-27 16:00] VITALS: BP 112/92; PULSE 60; RESP 17; TEMP 36.4; O2SAT 100
== END 2025-07-27 17:40 | DRG 137 ==
LOC: ER 08:46 → 8WST 11:27 → EDBEDREQTM 11:52 → EDBEDREQ 11:52 → ENRESERV 11:57 → 7EST 06-01 12:46
PROVIDERS: ADMIT Internal Medicine; ATTEND Internal Medicine
DX: J69.0 Pneumonitis due to inhalation of food and vomit (principal); L89.013 Pressure ulcer of right elbow, stage 3; L89.023 Pressure ulcer of left elbow, stage 3; L89.153 Pressure ulcer of sacral region, stage 3; L89.613 Pressure ulcer of right heel, stage 3; L89.623 Pressure ulcer of left heel, stage 3; G91.9 Hydrocephalus, unspecified; E03.9 Hypothyroidism, unspecified; F29 Unspecified psychosis not due to a substance or known physiological condition; E87.1 Hypo-osmolality and hyponatremia; E87.6 Hypokalemia; E83.42 Hypomagnesemia; Z74.01 Bed confinement status; Z98.2 Presence of cerebrospinal fluid drainage device; Z79.899 Other long term (current) drug therapy
CPT/HCPCS: 36415; 71045; 74018; 80048; 80053; 80076; 82607; 82746; 83605; 83735; 84100; 84145; 84439; 84443; 84484; 84703; 85025; 85027; 93005; 93970; 96365; 96375; 97112; 97162; 97530; 99291; A4606; A6261; J0696; J1650; J1938; J2543; J3475